=== PATIENT | male | born 1975 ===

== ENCOUNTER 2018-12-21 10:02 | Emergency (ER) | payer OTHER ==
[2018-12-21 10:10] VITALS: BMI 28.7
[2018-12-21 10:12] VITALS: BP 124/76; PULSE 71; RESP 18; TEMP 99; O2SAT 96
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
== END 2018-12-21 12:46 | disposition home or self-care (01) ==
LOC: C.ER 10:02
DX: S33.5XXA Sprain of ligaments of lumbar spine, initial encounter (principal); V49.49XA Driver injured in collision with other motor vehicles in traffic accident, initial encounter; Y92.410 Unspecified street and highway as the place of occurrence of the external cause